=== PATIENT | female | born 1990 | race Caucasian/White ===

== ENCOUNTER → 2024-08-12 09:17 | Outpatient (REF) | payer OTHER, SELFPAY | LOC: WDC 09:17 | PROVIDERS: ATTENDING PHYSICIAN Advanced Practice Midwife | DX: N63.10 Unspecified lump in the right breast, unspecified quadrant (principal); N63.12 Unspecified lump in the right breast, upper inner quadrant | CPT/HCPCS: 76642; 77062; 77066 ==